=== PATIENT | female | born 1945 | race American Indian/Alaskan Native ===

== ENCOUNTER 2017-09-26 20:37 | Emergency (ER) | payer MEDICARE ==
[2017-09-27 00:15] LABS: Basophils # (Auto) 0.1 K/mm3 (0.0-0.1); Basophils % (Auto) 0.5 % (0.0-1.8); Eosinophils # (Auto) 0.1 K/mm3 (0.0-0.4); Eosinophils % (Auto) 0.5 % (0.0-4.3); Hematocrit 40.4 % (30.3-42.9); Hemoglobin 13.2 gm/dl (10.1-14.3); Lymphocytes # (Auto) 3.8 K/mm3 (1.2-5.4); Lymphocytes % (Auto) 25.8 % (13.4-35.0); Mean Corpuscular HGB Conc 33 % (30-34); Mean Corpuscular Hemoglobin 28 pg (28-32); Mean Corpuscular Volume 86 fl (79-97); Monocytes # (Auto) 0.8 K/mm3 (0.0-0.8); Monocytes % (Auto) 5.4 % (0.0-7.3); Platelet Count 272 K/mm3 (140-440); Red Blood Count 4.68 M/mm3 (3.65-5.03)
[2017-09-27 00:31] LABS: Alanine Aminotransferase 11 units/L (7-56); Albumin 3.5 g/dL (3.9-5); BUN/Creatinine Ratio 14; Blood Urea Nitrogen 10 mg/dL (7-17); Calcium 8.8 mg/dL (8.4-10.2); Hemolysis Index 16; Lipase 10 units/L (13-60)
[2017-09-27] MEDS ORDERED: NACL 0.9% 1000 ML 1,000 ML IV ONE (00:39)
--- NOTE | 2017-09-27 00:40 | Emergency Department Report ---
ED N/V/D HPI - General Chief complaint: Nausea/Vomiting/Diarrhea Stated complaint: ABD PAIN Time Seen by Provider: 09/26/17 23:34 Source: patient, EMS Mode of arrival: Stretcher Limitations: No Limitations - History of Present Illness Initial comments: This chronically ill elderly 72-year-old woman presents with several day history of nausea and vomiting, with increasingly profuse diarrhea, which daughter reports has turned black over the past day with persistent frequent runny watery stool. She is tolerating some fluids today, but still has been vomiting intermittently. 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 She has not been on antibiotics recently. She is also a diabetic, but she is controlled by diet, does not take any other medication for it at this time. Onset/Timin -: Gradual, days(s) Description of Vomiting: watery Description of Diarrhea: water Location: diffuse Radiation: none Severity: mild Pain Scale: 2 Quality: cramping Consistency: intermittent Improves with: none Worsens with: other Associated Symptoms: denies other symptoms (diarrhea) - Related Data Previous Rx's Medication Instructions Recorded Last Taken Type Dicyclomine [Bentyl] 10 mg PO QID PRN #20 capsule 09/27/17 Unknown Rx Diphenoxylate/Atropine [Lomotil] 1 tab PO Q4H PRN #15 tablet 09/27/17 Unknown Rx Ondansetron [Zofran ODT TAB] 8 mg PO Q8HR #10 tab.rapdis 09/27/17 Unknown Rx Allergies Allergy/AdvReac Type Severity Reaction Status Date / Time unspecified antibiotic Allergy Unknown Uncoded 09/26/17 20:46 ED Review of Systems ROS: Stated complaint: ABD PAIN Other details as noted in HPI Constitutional: weakness. denies: chills, fever ENT: denies: ear pain, throat pain Respiratory: denies: cough, shortness of breath, wheezing Cardiovascular: denies: chest pain, palpitations Endocrine: no symptoms reported Gastrointestinal: nausea, vomiting, diarrhea Genitourinary: denies: urgency, dysuria, discharge Musculoskeletal: denies: back pain, joint swelling, arthralgia Neurological: other (left-sided weakness, chronic) Psychiatric: denies: anxiety, depression Hematological/Lymphatic: denies: easy bleeding, easy bruising ED Past Medical Hx - Past Medical History Hx Hypertension: Yes Hx CVA: Yes (left side weakness) Hx Seizures: Yes Additional medical history: Diverticulitis - Surgical History Hx Cholecystectomy: Yes Additional Surgical History: left arm - Social History Smoking Status: Current Every Day Smoker Substance Use Type: None - Medications Home Medications: Home Medications Medication Instructions Recorded Confirmed Last Taken Type Dicyclomine [Bentyl] 10 mg PO QID PRN #20 capsule 09/27/17 Unknown Rx Diphenoxylate/Atropine [Lomotil] 1 tab PO Q4H PRN #15 tablet 09/27/17 Unknown Rx Ondansetron [Zofran ODT TAB] 8 mg PO Q8HR #10 tab.rapdis 09/27/17 Unknown Rx ED Physical Exam - General Limitations: No Limitations General appearance: alert, other (chronic left hemiparesis, but awake and alert) - Head Head exam: Present: atraumatic, normocephalic - Eye Eye exam: Present: PERRL, EOMI - ENT ENT exam: Present: normal exam, mucous membranes dry - Neck Neck exam: Present: normal inspection. Absent: tenderness - Respiratory Respiratory exam: Present: normal lung sounds bilaterally. Absent: respiratory distress, wheezes, rales, rhonchi - Cardiovascular Cardiovascular Exam: Present: regular rate - GI/Abdominal GI/Abdominal exam: Present: soft, tenderness (mild, nonlocalized). Absent: guarding, rebound - Rectal Rectal exam: Present: other (stool is brownish, loose, somewhat watery). Absent : black stool - Extremities Exam Extremities exam: Present: normal inspection, other (paretic on the left side) - Back Exam Back exam: Present: normal inspection. Absent: CVA tenderness (R), CVA tenderness (L) - Neurological Exam Neurological exam: Present: alert, oriented X3, motor sensory deficit (chronic left hemiparesis) - Psychiatric Psychiatric exam: Present: normal affect, normal mood - Skin Skin exam: Present: warm, dry ED Course Vital Signs 09/26/17 09/27/17 20:54 01:08 Temperature 97.7 F Pulse Rate 63 Respiratory 18 16 Rate Blood Pressure 119/68 [Right] O2 Sat by Pulse 96 97 Oximetry - Reevaluation(s) Reevaluation #1: 09/27/17 05:52 Patient is stable on repeat examination, abdomen shows modest discomfort to palpation, but no localizing tenderness, no rebound or guarding, bowel sounds are active. Vital signs are stable, patient feels somewhat improved, looks more alert after rehydration with IV fluids. ED Medical Decision Making - Lab Data Result diagrams: 09/26/17 23:52 09/26/17 23:52 - Medical Decision Making Patient has an acute diarrheal illness, but she has not vomited since she's been here, bowel movements are brownish, there is no evidence of melena or acute bleeding, and patient shows stable hemoglobin, and is hemodynamically stable. She can be managed at home, is stable, and can be treated with antiemetics, antidiarrheals, and antispasmodics for discomfort. Since she has not been on antibiotics recently, she is at low risk for Clostridium difficile, and she can be managed until her illness passes, which should occur spontaneously over the next couple of days. Critical Care Time: No Critical care attestation.: If time is entered above; I have spent that time in minutes in the direct care of this critically ill patient, excluding procedure time. ED Disposition Clinical Impression: Acute gastroenteritis, Dehydration, moderate Disposition: DC-01 TO HOME OR SELFCARE Is pt being admited?: No Does the pt Need Aspirin: No Condition: Stable Instructions: Acute Diarrhea (ED), Gastroenteritis (ED), Dehydration (ED) Prescriptions: Dicyclomine [Bentyl] 10 mg PO QID PRN #20 capsule PRN Reason: cramps Diphenoxylate/Atropine [Lomotil] 1 tab PO Q4H PRN #15 tablet PRN Reason: Diarrhea Ondansetron [Zofran ODT TAB] 8 mg PO Q8HR #10 tab.gamal Referrals: PRIMARY CARE, [Primary Care Provider] - 3-5 Days Time of Disposition: 05:56
[2017-09-27 02:19] LABS: INR 1.04 (0.87-1.13)
[2017-09-27 06:06] VITALS: BP 110/80
== END 2017-09-27 06:57 | disposition home or self-care (01) ==
LOC: ED 20:37
DX: E86.0 Dehydration (principal); K52.9 Noninfective gastroenteritis and colitis, unspecified; I10 Essential (primary) hypertension; F17.200 Nicotine dependence, unspecified, uncomplicated; Z86.73 Personal history of transient ischemic attack (TIA), and cerebral infarction without residual deficits; Z90.49 Acquired absence of other specified parts of digestive tract; Z88.1 Allergy status to other antibiotic agents
CPT/HCPCS: 36415; 80053; 83690; 85025; 85610; 86850; 86900; 86901; 96360; 99283; J7030

== ENCOUNTER 2018-07-14 19:21 | Emergency (ER) | payer MEDICARE ==
[2018-07-14 19:48] VITALS: BP 193/94
--- NOTE | 2018-07-14 19:56 | Emergency Department Report ---
Chief Complaint: Upper Respiratory Infection Stated Complaint: LT FACE SWOLLEN/UNCOMFORTABLE TO BREATH OUT OF NOS Time Seen by Provider: 07/14/18 19:43 - HPI History of Present Illness: Pt c/o left sided facial pain that began about two hours ago she has a small nodule present to the left side of her face distal from her left eyebrow does not remember and insect bite no fever, no dental pain, no recent illness, sore throat pt has a PMHx of a CVA 2010 with residual left sided weakness MSE complete MSE screening note: Focused history and physical exam performed. ED Disposition for MSE Condition: Stable
--- NOTE | 2018-07-14 22:25 | Cat Scan Report ---
PROCEDURE: CT HEAD/BRAIN WO CON TECHNIQUE: Spiral imaging of the brain is obtained without IV contrast. HISTORY: left facial swelling COMPARISONS: None FINDINGS: There is no evidence of intracranial hemorrhage. No parenchymal hemorrhage, mass lesions or mass effe ct are identified. A large old area of encephalomalacia seen involving portions of the right frontal right temporal and right parietal lobe. The right cerebral peduncle is smaller than the left suggesti ng atrophy and/or gliosis. Moderate size area of mature encephalomalacia visualized in the left occip ital lobe. No mass lesions are identified. The ventricles are prominent as is the sulcal pattern and fissures co nsistent with mild atrophy. The right lateral ventricle is larger than the left consistent with ex va cuo effect. Visualized paranasal sinuses are clear. The mastoid air cells are clear. No evidence of skull fracture. IMPRESSION: No acute abnormalities are identified. Large area of mature encephalomalacia visualized and involving the right frontal lobe, right temporal lobe right parietal lobe and a portion of the right cerebral peduncle. There is also a moderate size area of mature and cephalization the left occipital lobe. There is evidence of mild atrophy and gliosis. No acute intracranial abnormalities are identified.. This document is electronically signed by Fletcher Hess MD., July 14 2018 10:23:47 PM ET
--- NOTE | 2018-07-14 23:53 | Emergency Department Report ---
ED General Adult HPI - General Chief complaint: Upper Respiratory Infection Stated complaint: LT FACE SWOLLEN/UNCOMFORTABLE TO BREATH OUT OF NOS Time Seen by Provider: 07/14/18 19:43 Source: patient, family Mode of arrival: Ambulatory Limitations: No Limitations - History of Present Illness -: Gradual, days(s) (painless left facial swelling) Location: face Radiation: non-radiation Severity scale (0 -10): 10 Quality: burning Consistency: constant Improves with: none Worsens with: none Associated Symptoms: denies other symptoms Treatments Prior to Arrival: none - Related Data Previous Rx's Medication Instructions Recorded Last Taken Type Dicyclomine [Bentyl] 10 mg PO QID PRN #20 capsule 09/27/17 Unknown Rx Diphenoxylate/Atropine [Lomotil] 1 tab PO Q4H PRN #15 tablet 09/27/17 Unknown Rx Ondansetron [Zofran ODT TAB] 8 mg PO Q8HR #10 tab.rapdis 09/27/17 Unknown Rx Allergies Allergy/AdvReac Type Severity Reaction Status Date / Time unspecified antibiotic Allergy Unknown Uncoded 09/26/17 20:46 ED Review of Systems ROS: Stated complaint: LT FACE SWOLLEN/UNCOMFORTABLE TO BREATH OUT OF NOS Other details as noted in HPI Constitutional: denies: chills, fever Eyes: denies: eye pain, eye discharge, vision change ENT: denies: ear pain, throat pain Respiratory: denies: cough, shortness of breath, wheezing Cardiovascular: denies: chest pain, palpitations Endocrine: no symptoms reported Gastrointestinal: denies: abdominal pain, nausea, diarrhea Genitourinary: denies: urgency, dysuria, discharge Musculoskeletal: denies: back pain, joint swelling, arthralgia Skin: denies: rash, lesions Neurological: denies: headache, weakness, paresthesias Psychiatric: denies: anxiety, depression Hematological/Lymphatic: denies: easy bleeding, easy bruising ED Past Medical Hx - Past Medical History Hx Hypertension: Yes Hx CVA: Yes (left side weakness-06/11/2010) Hx Seizures: Yes Hx Dementia: Yes Additional medical history: Diverticulitis - Surgical History Hx Cholecystectomy: Yes Additional Surgical History: left arm, colon blockage - Social History Smoking Status: Never Smoker Substance Use Type: None - Medications Home Medications: Home Medications Medication Instructions Recorded Confirmed Last Taken Type Dicyclomine [Bentyl] 10 mg PO QID PRN #20 capsule 09/27/17 Unknown Rx Diphenoxylate/Atropine [Lomotil] 1 tab PO Q4H PRN #15 tablet 09/27/17 Unknown Rx Ondansetron [Zofran ODT TAB] 8 mg PO Q8HR #10 tab.rapdis 09/27/17 Unknown Rx ED Physical Exam - General Limitations: No Limitations General appearance: alert, in no apparent distress - Head Head exam: Present: atraumatic, normocephalic, normal inspection (no facial asymmetry. No evidence of any herpetic lesions) - Eye Eye exam: Present: normal appearance, PERRL, EOMI. Absent: conjunctival injection, nystagmus, periorbital swelling, periorbital tenderness Pupils: Present: normal accommodation - ENT ENT exam: Present: mucous membranes moist, other (ears are clear. No lesions or discharge from the ear canals. Sinuses are clear with some minimal clear drainage. No lesions to the antronasal cavity as well. Posterior pharynx is clear. Tongue and uvula are midline. No abscess appreciated) - Neck Neck exam: Present: normal inspection, full ROM. Absent: lymphadenopathy, th yromegaly - Respiratory Respiratory exam: Present: normal lung sounds bilaterally. Absent: respiratory distress, rales, rhonchi - Cardiovascular Cardiovascular Exam: Present: regular rate, normal rhythm. Absent: systolic murmur, diastolic murmur, rubs, gallop - GI/Abdominal GI/Abdominal exam: Present: soft, normal bowel sounds - Extremities Exam Extremities exam: Present: normal inspection - Back Exam Back exam: Present: normal inspection - Neurological Exam Neurological exam: Present: alert, oriented X3 - Psychiatric Psychiatric exam: Present: normal affect, normal mood - Skin Skin exam: Present: warm, dry, intact, normal color. Absent: rash ED Course Vital Signs 07/14/18 19:44 Temperature 98.4 F Pulse Rate 77 Respiratory 18 Rate Blood Pressure 193/94 O2 Sat by Pulse 96 Oximetry Critical care attestation.: If time is entered above; I have spent that time in minutes in the direct care of this critically ill patient, excluding procedure time. ED Disposition Clinical Impression: Swelling of left side of face Disposition: DC-01 TO HOME OR SELFCARE Is pt being admited?: No Does the pt Need Aspirin: No Condition: Stable Additional Instructions: Please be sure to follow with her primary care doctor for further evaluation of the painless facial swelling. Regimen. Further ED evaluation for things such as multiple myeloma, allergen response, so suppressor bacterial infectious process, a mixed connective tissue process. Referrals: [facility] [Provider Group] - 3-5 Days
== END 2018-07-15 00:09 | disposition home or self-care (01) ==
LOC: ED 19:21
DX: R22.0 Localized swelling, mass and lump, head (principal); I10 Essential (primary) hypertension; Z86.73 Personal history of transient ischemic attack (TIA), and cerebral infarction without residual deficits; Z90.49 Acquired absence of other specified parts of digestive tract; Z88.1 Allergy status to other antibiotic agents
CPT/HCPCS: 70450; 99283